=== PATIENT | male | born 1940 | race Caucasian/White ===

== ENCOUNTER 2018-09-10 11:06 | Inpatient (IN) | payer MEDICARE, OTHER ==
--- NOTE | 2018-09-10 11:40 | ER Document Report ---
ED Medical Screen (RME) - General Chief Complaint: Breathing Difficulty Stated Complaint: SHORTNESS OF BREATH Time Seen by Provider: 09/10/18 11:37 Primary Care Provider: PRACHI GALO MD [Primary Care Provider] - Follow up as needed Mode of Arrival: Ambulatory Information source: Patient Notes: 77-year-old male presented to ED for possible right lower lung pneumonia. He was sent to the emergency room by Dr. Isbell. States she has had fevers chills sore throat and cough since . He came to the doctor today because he had difficulty breathing. Dr. Isbell stated that after breathing treatment he had crackles to the right lower lobe with O2 sat of 92%. He states his temperature was 99.9 in the clinic. Patient does have a low blood pressure when seen in the private area he does have crackles to the right lower lobe. O2 sats between 94-95. Temp 98.1 in the pit area. Will send for blood and chest x-ray. I have greeted and performed a rapid initial assessment of this patient. A comprehensive ED assessment and evaluation of the patient, analysis of test results and completion of medical decision making process will be conducted by an additional ED providers. Dictation of this chart was performed using voice recognition software; therefore, there may be some unintended grammatical errors. TRAVEL OUTSIDE OF THE [place] IN LAST 30 DAYS: No - Related Data Allergies/Adverse Reactions: No Known Drug Allergies Allergy (Verified 09/10/18 11:20) pumpkin Allergy (Verified 09/10/18 11:20) Physical Exam - Vital signs Vitals: Temp Pulse Resp BP Pulse Ox 98.1 F 62 22 H 84/54 L 89 L 09/10/18 11:09/10/18 11:09/10/18 11:09/10/18 11:09/10/18 11:26 Course - Vital Signs Vital signs: Temp Pulse Resp BP Pulse Ox 98.1 F 62 22 H 84/54 L 89 L 09/10/18 11:26 09/10/18 11:09/10/18 11:09/10/18 11:09/10/18 11:26 Doctor's Discharge - Discharge Referrals: PRACHI GALO MD [Primary Care Provider] - Follow up as needed
[2018-09-10] MEDS ORDERED: NORMAL SALINE 1000 ML 1,000 ML IV ONE (11:47)
[2018-09-10] MEDS ORDERED: ONDANSETRON HCL INJ/PF 4 MG/2 ML SDV IV ONE (12:00)
[2018-09-10 12:26] LABS: ABSOLUTE MONOCYTES (AUTO) 1.3 10^3/uL (0.1-1.4); ABSOLUTE NEUT (AUTO) 11.9 10^3/uL (1.7-8.2); BASOPHILS % (AUTO) 0.1 % (0-2); HEMATOCRIT 39.4 % (37.9-51.0); HEMOGLOBIN 13.5 g/dL (13.5-17.0); LYMPHOCYTES % (AUTO) 6.9 % (13-45); MEAN CORPUSCULAR HEMOGLOBIN 32.6 pg (27.0-33.4); MEAN CORPUSCULAR HGB CONC 34.2 g/dL (32.0-36.0); MEAN CORPUSCULAR VOLUME 95 fl (80-97); PLATELET COUNT 220 10^3/uL (150-450); RED BLOOD COUNT 4.13 10^6/uL (4.35-5.55); RED CELL DISTRIBUTION WIDTH 12.8 % (11.5-14.0); TOTAL CELLS COUNTED % (AUTO) 100 %; WHITE BLOOD COUNT 14.2 10^3/uL (4.0-10.5)
[2018-09-10 12:30] LABS: VENOUS BLOOD BASE EXCESS 0.9 mmol/L; VENOUS BLOOD HCO3 25.9 mmol/L (20-32); VENOUS BLOOD PCO2 42.9 mmHg (35-63); VENOUS BLOOD PH 7.4 (7.30-7.42)
--- NOTE | 2018-09-10 12:42 | RADIOLOGY REPORT (SQ) ---
EXAM DESCRIPTION: CHEST 2 VIEWS COMPLETED DATE/TIME: 09/10/2018 12:29 pm REASON FOR STUDY: cough crackles right lower lobe COMPARISON: None. EXAM PARAMETERS: NUMBER OF VIEWS: two views TECHNIQUE: Digital Frontal and Lateral radiographic views of the chest acquired. RADIATION DOSE: NA LIMITATIONS: none FINDINGS: LUNGS AND PLEURA: There is opacification in the right lower lung laterally and posteriorly on the lateral view. MEDIASTINUM AND HILAR STRUCTURES: No masses or contour abnormalities. HEART AND VASCULAR STRUCTURES: Heart normal size. No evidence for failure. BONES: No acute findings. HARDWARE: None in the chest. OTHER: No other significant finding. IMPRESSION: Right lower lobe pneumonia. TECHNICAL DOCUMENTATION: JOB ID: [id number] [employer]- All Rights Reserved Reading location - IP/workstation name: [email or web address]
[2018-09-10 12:49] LABS: ALANINE AMINOTRANSFERASE 71 U/L (21-72); ALBUMIN 3.7 g/dL (3.5-5.0); ALKALINE PHOSPHATASE 88 U/L (38-126); ANION GAP 16 (5-19); ASPARTATE AMINO TRANSFERASE 57 U/L (17-59); BILIRUBIN,DIRECT 0.5 mg/dL (0.0-0.4); BILIRUBIN,TOTAL 1.8 mg/dL (0.2-1.3); BLOOD UREA NITROGEN 30 mg/dL (7-20); CALCIUM 9.2 mg/dL (8.4-10.2); CARBON DIOXIDE 23 mmol/L (22-30); CHLORIDE 102 mmol/L (98-107); GLUCOSE 135 mg/dL (75-110); SODIUM 140.6 mmol/L (137-145); TOTAL PROTEIN 6.6 g/dL (6.3-8.2)
[2018-09-10 12:56] LABS: INTERNATIONAL RATION (INR) 1.12
[2018-09-10] MEDS ORDERED: LEVOFLOXACIN 750 MG/D5W RTU 750 MG/150 ML RTUPB IV ONE (13:27)
--- NOTE | 2018-09-10 13:36 | ER Document Report ---
ED General - General Chief Complaint: Breathing Difficulty Stated Complaint: SHORTNESS OF BREATH Time Seen by Provider: 09/10/18 11:37 Primary Care Provider: PRACHI GALO MD [ACTIVE STAFF] - Follow up as needed Mode of Arrival: Ambulatory TRAVEL OUTSIDE OF THE [place] IN LAST 30 DAYS: No - HPI Notes: Patient is a 77-year-old male who presents to the emergency department for evaluation. He was sent in by Dr. Isbell. Since the patient has had sore throat, cough, fevers, body aches. He went to see his doctor today because he was feeling more short of breath. On examination the patient had a right lower lobe crackles, he was concerned for pneumonia. He sent him here to the ED for further evaluation. Patient has had some nausea but no emesis. He still urinating. Normal bowel movements. He denies any significant pain at this ti me. He just feels generally weak. - Related Data Allergies/Adverse Reactions: No Known Drug Allergies Allergy (Verified 09/10/18 11:20) pumpkin Allergy (Verified 09/10/18 11:20) Past Medical History - General Information source: Patient - Social History Smoking Status: Never Smoker Chew tobacco use (# tins/day): No Drug Abuse: None Family History: Reviewed & Not Pertinent, Malignancy - Lung cancer Patient has suicidal ideation: No Patient has homicidal ideation: No - Past Medical History Cardiac Medical History: Reports: Hx Hypercholesterolemia, Hx Hypertension Renal/ Medical History: Denies: Hx Peritoneal Dialysis Review of Systems - Review of Systems Constitutional: See HPI EENT: No symptoms reported Cardiovascular: No symptoms reported Respiratory: See HPI Gastrointestinal: See HPI Genitourinary: No symptoms reported Musculoskeletal: No symptoms reported Skin: No symptoms reported Neurological/Psychological: No symptoms reported Physical Exam - Vital signs Vitals: Temp Pulse Resp BP Pulse Ox 98.1 F 62 22 H 84/54 L 89 L 09/10/18 11:26 09/10/18 11:26 09/10/18 11:26 09/10/18 11:26 09/10/18 11:26 - Notes Notes: Vital signs reviewed, please refer to chart. Head is normocephalic, atraumatic. Pupils equal round, reactive to light. Neck is supple without meningismus. Heart is regular rate and rhythm. Lungs reveal diminished breath sounds with crackles in the right base. Abdomen is soft, nontender, normoactive bowel sounds throughout. Extremities without cyanosis, clubbing. Posterior calves are nontender. Peripheral pulses are equal. Skin is warm and dry. Patient is awake, alert, neurological exam is nonfocal. Course - Re-evaluation Re-evalutation: 09/10/18 13:35 Patient presents to the emergency department for evaluation. On arrival his oxygen is 89%, he is moderately hypotensive. He was placed on a monitor, given IV fluids. Laboratory investigations were obtained. Chest x-ray shows a right lower lobe pneumonia. Patient is given IV Levaquin. This is a 77-year-old male with moderately low blood pressure, elevated lactate. His white count is high. He does qualify for sepsis criteria. His blood pressure was 102/55 after a liter of fluid. His creatinine was found to be 1.92. He states he is unaware of any history of chronic kidney disease, but is unsure his baseline creatinine. There are no old studies available for comparison. At this point I will hold off on further fluids. He is given IV Levaquin. Will call medicine for admiss ion. 09/10/18 13:[address] Marques, he graciously accepted the patient. I have a call to Dr. Jenkins, conversation with him is pending. - Vital Signs Vital signs: Temp Pulse Resp BP Pulse Ox 98.1 F 62 12 85/53 L 94 09/10/18 11:26 09/10/18 11:26 09/10/18 12:01 09/10/18 12:01 09/10/18 12:01 - Laboratory Result Diagrams: 09/10/18 12:00 09/10/18 12:00 Laboratory results interpreted by me: 09/10/18 09/10/18 09/10/18 12:00 12:00 12:00 WBC 14.2 H RBC 4.13 L Seg Neutrophils % 84.0 H Lymphocytes % 6.9 L Absolute Neutrophils 11.9 H BUN 30 H Creatinine 1.92 H Est GFR ( Amer) 42 L Est GFR (Non-Af Amer) 34 L Glucose 135 H Lactic Acid 2.2 H Total Bilirubin 1.8 H Direct Bilirubin 0.5 H - Diagnostic Test Radiology reviewed: Reports reviewed Radiology results interpreted by me: 09/10/18 13:42 Chest X-Ray 09/10/18 11:41 IMPRESSION: Right lower lobe pneumonia. - EKG Interpretation by Me Additional EKG results interpreted by me: 09/10/18 13:53 Sinus mechanism with a rate of 63 bpm. Normal axis. Borderline QT interval. Nonspecific ST changes, but no acute changes concerning for infarction. Inferior T wave changes may be normal variant versus ischemia. No old studies for comparison. Discharge - Discharge Clinical Impression: Pneumonia, Sepsis Condition: Stable Disposition: ADMITTED INPATIENT Admitting Provider: Alice (Hospitalist) Unit Admitted: IMCU Referrals: PRACHI GALO MD [ACTIVE STAFF] - Follow up as needed
[2018-09-10] MEDS ORDERED: PROMETHAZINE HCL 25 MG TABLET PO PRN (14:13)
[2018-09-10] MEDS ORDERED: ACETAMINOPHEN 325 MG TABLET PO PRN (14:13)
--- NOTE | 2018-09-10 14:13 | PDOC H&P ---
History of Present Illness Admission Date/PCP: LEVI FERNANDEZ MD History of Present Illness: ANDREW CARTWRIGHT is a 77 year old male with no significant past medical history except for hypertension presented with chief complaint of shortness of breath and cough. Patient reports this he has been in his usual baseline state of health up until 4 days when he started to have shortness of breath precipitated by exertion and associated cough productive of brownish sputum. Patient denies any fever, chills, chest pain, palpitation or diaphoresis. The above-mentioned complaint patient visited his primary care Dr. Fernandez who directed him to come to ER. In the ER patient found to be hypotensive with blood pressure of 70/40 for which she is bolused with normal saline. His blood work shows leukocytosis of 14,000 and creatinine of 1.92 and lactic acid of 2.2. His chest x-ray shows right lower lobe consolidation which is compatible with right lower lobe pneumonia. Past Medical History Cardiac Medical History: Reports: Hyperlipidema, Hypertension Social History Smoking Status: Never Smoker - Advance Directive Resuscitation Status: Full Code Family History Family History: Reviewed & Not Pertinent, Malignancy - Lung cancer Parental Family History Reviewed: Yes Children Family History Reviewed: Yes Sibling(s) Family History Reviewed.: Yes Medication/Allergy Allergies/Adverse Reactions: No Known Drug Allergies Allergy (Verified 09/10/18 11:20) pumpkin Allergy (Verified 09/10/18 11:20) Review of Systems Constitutional: ABSENT: chills, fever(s), headache(s), weight gain, weight loss Eyes: ABSENT: visual disturbances Ears: ABSENT: hearing changes Cardiovascular: ABSENT: chest pain, dyspnea on exertion, edema, orthropnea, palpitations Respiratory: PRESENT: cough, dyspnea Gastrointestinal: ABSENT: abdominal pain, constipation, diarrhea, hematemesis, hematochezia, nausea, vomiting Genitourinary: ABSENT: dysuria, hematuria Musculoskeletal: ABSENT: joint swelling Integumentary: ABSENT: rash, wounds Neurological: ABSENT: abnormal gait, abnormal speech, confusion, dizziness, focal weakness, syncope Psychiatric: ABSENT: anxiety, depression, homidical ideation, suicidal ideation Endocrine: ABSENT: cold intolerance, heat intolerance, polydipsia, polyuria Hematologic/Lymphatic: ABSENT: easy bleeding, easy bruising Physical Exam Vital Signs: Temp Pulse Resp BP Pulse Ox 98.1 F 62 12 85/53 L 94 09/10/18 11:26 09/10/18 11:26 09/10/18 12:01 09/10/18 12:01 09/10/18 12:01 Intake & Output 09/09/18 09/10/18 09/11/18 06:59 06:59 06:59 Intake Total 1000 Balance 1000 Weight 87.6 kg Results Laboratory Results: 09/10/18 12:00 09/10/18 12:00 09/10/18 09/10/18 09/10/18 12:00 12:00 12:00 WBC 14.2 H RBC 4.13 L Hgb 13.5 Hct 39.4 MCV 95 MCH 32.6 MCHC 34.2 RDW 12.8 Plt Count 220 Seg Neutrophils % 84.0 H Lymphocytes % 6.9 L Monocytes % 9.0 Eosinophils % 0.0 Basophils % 0.1 Absolute Neutrophils 11.9 H Absolute Lymphocytes 1.0 Absolute Monocytes 1.3 Absolute Eosinophils 0.0 Absolute Basophils 0.0 VBG pH VBG pCO2 VBG HCO3 VBG Base Excess Sodium 140.6 Potassium 4.0 Chloride 102 Carbon Dioxide 23 Anion Gap 16 BUN 30 H Creatinine 1.92 H Est GFR ( Amer) 42 L Est GFR (Non-Af Amer) 34 L Glucose 135 H Lactic Acid 2.2 H Calcium 9.2 Total Bilirubin 1.8 H AST 57 ALT 71 Alkaline Phosphatase 88 Total Protein 6.6 Albumin 3.7 09/10/18 12:00 WBC RBC Hgb Hct MCV MCH MCHC RDW Plt Count Seg Neutrophils % Lymphocytes % Monocytes % Eosinophils % Basophils % Absolute Neutrophils Absolute Lymphocytes Absolute Monocytes Absolute Eosinophils Absolute Basophils VBG pH 7.40 VBG pCO2 42.9 VBG HCO3 25.9 VBG Base Excess 0.9 Sodium Potassium Chloride Carbon Dioxide Anion Gap BUN Creatinine Est GFR ( Amer) Est GFR (Non-Af Amer) Glucose Lactic Acid Calcium Total Bilirubin AST ALT Alkaline Phosphatase Total Protein Albumin Impressions: Chest X-Ray 09/10/18 11:41 IMPRESSION: Right lower lobe pneumonia. Assessment and Plan - Diagnosis (1) Sepsis Is this a current diagnosis for this admission?: Yes Plan: Evidenced by leukocytosis, lactic acidosis, hypotension and acute kidney injury. Most probably the origin of his sepsis is his right lower lobe. Patient is going to be cautiously hydrated and managed accordingly. (2) Right lower lobe pneumonia Is this a current diagnosis for this admission?: Yes Plan: This is a community-acquired pneumonia. Patient has been started on Levaquin. (3) Acute kidney injury Is this a current diagnosis for this admission?: Yes Plan: To sepsis and possibly prerenal. Patient is going to be gently hydrated. (4) Hypertension Qualifiers: Hypertension type: essential hypertension Qualified Code(s): I10 - Essential (primary) hypertension Is this a current diagnosis for this admission?: Yes Plan: To home medication (5) Hyperlipidemia associated with type 2 diabetes mellitus Is this a current diagnosis for this admission?: Yes Plan: Continue home medication. - Inpatient Certification Medical Necessity: Need Close Monitoring Due to Risk of Patient Decompensation, Need For IV Fluids, Need for IV Antibiotics
[2018-09-10] MEDS ORDERED: GUAIFENESIN 600 MG TABLET.SA PO ONE (14:19)
[2018-09-10] MEDS: ENOXAPARIN SODIUM INJ 40 MG/0.4 ML DISP.SYRIN SUBCUT SCH (17:24)
[2018-09-10] MEDS: DOCUSATE SODIUM 100 MG CAPSULE PO SCH (17:47)
[2018-09-10] MEDS: NORMAL SALINE 1000 ML 1,000 ML IV PRN (18:29)
--- NOTE | 2018-09-10 18:37 | EKG REPORT ---
SEVERITY:- ABNORMAL ECG - SINUS RHYTHM ABNORMAL T, CONSIDER ISCHEMIA, INFERIOR LEADS BORDERLINE PROLONGED QT INTERVAL : Confirmed by: Jacquelyn Mars MD 10-Sep-2018 18:36:24
[2018-09-10] MEDS: GUAIFENESIN 600 MG TABLET.SA PO SCH (21:37)
[2018-09-10] MEDS: FAMOTIDINE 20 MG TABLET PO SCH (21:37)
[2018-09-11] MEDS: NORMAL SALINE 1000 ML 1,000 ML IV PRN ×2 (03:15→11:50)
[2018-09-11 04:00] LABS: APPEARANCE,URINE SLIGHTLY-CLOUDY; BILIRUBIN,URINE NEGATIVE (NEGATIVE); COLOR,URINE YELLOW; GLUCOSE, URINE NEGATIVE (NEGATIVE); KETONES,URINE NEGATIVE (NEGATIVE); LEUKOCYTE ESTERASE,URINE NEGATIVE (NEGATIVE); NITRITE,URINE NEGATIVE (NEGATIVE); PROTEIN,URINE NEGATIVE (NEGATIVE); URINE SPECIFIC GRAVITY 1.015
[2018-09-11 05:52] LABS: ABSOLUTE EOSINOPHILS # (AUTO) 0.1 10^3/uL (0.0-0.6); ABSOLUTE LYMPHOCYTES (AUTO) 1.8 10^3/uL (0.5-4.7); ABSOLUTE MONOCYTES (AUTO) 1.2 10^3/uL (0.1-1.4); ABSOLUTE NEUT (AUTO) 7.7 10^3/uL (1.7-8.2); BASOPHILS % (AUTO) 0.3 % (0-2); EOSINOPHILS % (AUTO) 0.8 % (0-6); HEMATOCRIT 36.2 % (37.9-51.0); HEMOGLOBIN 12.6 g/dL (13.5-17.0); MEAN CORPUSCULAR HEMOGLOBIN 33.1 pg (27.0-33.4); MEAN CORPUSCULAR HGB CONC 34.9 g/dL (32.0-36.0); MEAN CORPUSCULAR VOLUME 95 fl (80-97); MONOCYTES % (AUTO) 11.4 % (3-13); PLATELET COUNT 200 10^3/uL (150-450); RED BLOOD COUNT 3.82 10^6/uL (4.35-5.55); SEGMENTED NEUTROPHILS % (AUTO) 70.5 % (42-78); TOTAL CELLS COUNTED % (AUTO) 100 %; WHITE BLOOD COUNT 10.9 10^3/uL (4.0-10.5)
[2018-09-11 06:15] LABS: ANION GAP 13 (5-19); BLOOD UREA NITROGEN 29 mg/dL (7-20); CALCIUM 8.6 mg/dL (8.4-10.2); CARBON DIOXIDE 22 mmol/L (22-30); CHLORIDE 107 mmol/L (98-107); GLUCOSE 121 mg/dL (75-110); LIPASE 67.9 U/L (23-300); POTASSIUM 3.9 mmol/L (3.6-5.0); SODIUM 142.2 mmol/L (137-145)
[2018-09-11] MEDS: ENOXAPARIN SODIUM INJ 40 MG/0.4 ML DISP.SYRIN SUBCUT SCH (10:09)
[2018-09-11] MEDS: GUAIFENESIN 600 MG TABLET.SA PO SCH (10:09)
[2018-09-11] MEDS: DOCUSATE SODIUM 100 MG CAPSULE PO SCH ×2 (10:09→17:55)
--- NOTE | 2018-09-11 16:35 | PDOC PROGRESS REPORT ---
Subjective Progress Note for:: 09/11/18 Subjective:: No adverse events overnight. No new complaints. No fevers. Cough is been productive. He is feeling a lot better. He is been getting up to the bathroom without getting short of breath. Reason For Visit: SEPSIS, PNEUMONIA, ACUTE KIDNEY INJURY Physical Exam Vital Signs: Temp Pulse Resp BP Pulse Ox 98.2 F 53 L 18 138/65 H 99 09/11/18 11:49 09/11/18 11:49 09/11/18 11:49 09/11/18 11:49 09/11/18 11:49 Intake & Output 09/10/18 09/11/18 09/12/18 06:59 06:59 06:59 Intake Total 2990 1000 Output Total 375 Balance 2615 1000 Weight 89.5 kg General appearance: PRESENT: no acute distress, cooperative Respiratory exam: PRESENT: crackles - Right lower lobe, symmetrical, unlabored. ABSENT: accessory muscle use, chest wall tenderness, prolonged expiratory phas, rhonchi, tachypnea, wheezes Cardiovascular exam: PRESENT: RRR, +S1, +S2 Pulses: PRESENT: normal carotid pulses Vascular exam: PRESENT: normal capillary refill GI/Abdominal exam: PRESENT: normal bowel sounds, soft. ABSENT: distended, guarding, rebound, tenderness Extremities exam: ABSENT: clubbing, pedal edema Musculoskeletal exam: PRESENT: normal inspection. ABSENT: deformity Neurological exam: PRESENT: alert, awake, oriented to person, oriented to place, oriented to time, oriented to situation Psychiatric exam: PRESENT: appropriate affect, normal mood Skin exam: PRESENT: dry, warm Results Laboratory Results: 09/11/18 04:55 09/11/18 04:55 09/10/18 09/11/18 09/11/18 16:28 03:25 04:55 WBC 10.9 H RBC 3.82 L Hgb 12.6 L Hct 36.2 L MCV 95 MCH 33.1 MCHC 34.9 RDW 13.0 Plt Count 200 Seg Neutrophils % 70.5 Lymphocytes % 17.0 Monocytes % 11.4 Eosinophils % 0.8 Basophils % 0.3 Absolute Neutrophils 7.7 Absolute Lymphocytes 1.8 Absolute Monocytes 1.2 Absolute Eosinophils 0.1 Absolute Basophils 0.0 Sodium Potassium Chloride Carbon Dioxide Anion Gap BUN Creatinine Est GFR ( Amer) Est GFR (Non-Af Amer) Glucose Lactic Acid 1.6 Calcium Lipase Urine Color YELLOW Urine Appearance SLIGHTLY-CLOUDY Urine pH 5.0 Ur Specific [place] 1.015 Urine Protein NEGATIVE Urine Glucose (UA) NEGATIVE Urine Ketones NEGATIVE Urine Blood NEGATIVE Urine Nitrite NEGATIVE Ur Leukocyte Esterase NEGATIVE Urine WBC (Auto) 3 Urine RBC (Auto) 2 09/11/18 04:55 WBC RBC Hgb Hct MCV MCH MCHC RDW Plt Count Seg Neutrophils % Lymphocytes % Monocytes % Eosinophils % Basophils % Absolute Neutrophils Absolute Lymphocytes Absolute Monocytes Absolute Eosinophils Absolute Basophils Sodium 142.2 Potassium 3.9 Chloride 107 Carbon Dioxide 22 Anion Gap 13 BUN 29 H Creatinine 1.65 H Est GFR ( Amer) 49 L Est GFR (Non-Af Amer) 41 L Glucose 121 H Lactic Acid Calcium 8.6 Lipase 67.9 Urine Color Urine Appearance Urine pH Ur Specific [place] Urine Protein Urine Glucose (UA) Urine Ketones Urine Blood Urine Nitrite Ur Leukocyte Esterase Urine WBC (Auto) Urine RBC (Auto) Impressions: Chest X-Ray 09/10/18 11:41 IMPRESSION: Right lower lobe pneumonia. Assessment and Plan - Diagnosis (1) Right lower lobe pneumonia Qualifiers: Pneumonia type: due to unspecified organism Qualified Code(s): J18.1 - Lobar pneumonia, unspecified organism Is this a current diagnosis for this admission?: Yes Plan: White blood cell count is improving on current antibiotics. Blood cultures as far negative. (2) Acute kidney injury Is this a current diagnosis for this admission?: Yes Plan: Creatinine is improving on IV fluids and antibiotics. We will repeat his labs in the morning to see if he needs more IV fluids. - Time Time Spent with patient: 15-24 minutes
[2018-09-11] MEDS: VALSARTAN 160 MG TABLET PO SCH (17:54)
[2018-09-11] MEDS: LOSARTAN POTASSIUM 50 MG TABLET PO SCH (17:55)
[2018-09-11] MEDS: CLONIDINE HCL 0.1 MG TABLET PO SCH (17:55)
[2018-09-11] MEDS ORDERED: ATORVASTATIN CALCIUM 20 MG TABLET PO SCH (18:00)
[2018-09-12] MEDS: GUAIFENESIN 600 MG TABLET.SA PO SCH ×2 (00:08→09:30)
[2018-09-12] MEDS: FAMOTIDINE 20 MG TABLET PO SCH (00:09)
[2018-09-12 05:53] LABS: ABSOLUTE BASOPHILS # (AUTO) 0.1 10^3/uL (0.0-0.2); ABSOLUTE EOSINOPHILS # (AUTO) 0.3 10^3/uL (0.0-0.6); ABSOLUTE LYMPHOCYTES (AUTO) 2.1 10^3/uL (0.5-4.7); ABSOLUTE MONOCYTES (AUTO) 1.1 10^3/uL (0.1-1.4); ABSOLUTE NEUT (AUTO) 4.9 10^3/uL (1.7-8.2); BASOPHILS % (AUTO) 0.6 % (0-2); EOSINOPHILS % (AUTO) 3.3 % (0-6); HEMOGLOBIN 12.1 g/dL (13.5-17.0); LYMPHOCYTES % (AUTO) 24.4 % (13-45); MEAN CORPUSCULAR HGB CONC 34.5 g/dL (32.0-36.0); MEAN CORPUSCULAR VOLUME 96 fl (80-97); MONOCYTES % (AUTO) 13.5 % (3-13); PLATELET COUNT 203 10^3/uL (150-450); RED BLOOD COUNT 3.66 10^6/uL (4.35-5.55); RED CELL DISTRIBUTION WIDTH 12.8 % (11.5-14.0); SEGMENTED NEUTROPHILS % (AUTO) 58.2 % (42-78); TOTAL CELLS COUNTED % (AUTO) 100 %; WHITE BLOOD COUNT 8.5 10^3/uL (4.0-10.5)
[2018-09-12 06:22] LABS: ANION GAP 8 (5-19); BLOOD UREA NITROGEN 19 mg/dL (7-20); CALCIUM 8.9 mg/dL (8.4-10.2); CARBON DIOXIDE 24 mmol/L (22-30); CHLORIDE 110 mmol/L (98-107); GLUCOSE 96 mg/dL (75-110); POTASSIUM 3.9 mmol/L (3.6-5.0)
[2018-09-12] MEDS: CLONIDINE HCL 0.1 MG TABLET PO SCH (06:53)
[2018-09-12] MEDS: LOSARTAN POTASSIUM 50 MG TABLET PO SCH (09:30)
[2018-09-12] MEDS: VALSARTAN 160 MG TABLET PO SCH (09:30)
[2018-09-12] MEDS: ENOXAPARIN SODIUM INJ 40 MG/0.4 ML DISP.SYRIN SUBCUT SCH (09:30)
[2018-09-12] MEDS: DOCUSATE SODIUM 100 MG CAPSULE PO SCH (09:30)
[2018-09-12] MEDS ORDERED: LEVOFLOXACIN 750 MG TABLET PO SCH (10:00)
[2018-09-12] MEDS ORDERED: LEVOFLOXACIN 750 MG/D5W RTU 750 MG/150 ML RTUPB IV SCH (10:00)
[2018-09-12 11:00] VITALS: BP 116/61
--- NOTE | 2018-09-12 18:28 | PDOC DISCHARGE SUMMARY ---
General - Admit/Disc Date/PCP Admission Date/Primary Care Provider: 09/10/18 14:20 LEVI FERNANDEZ MD Discharge Date: 09/12/18 - Discharge Diagnosis (1) Right lower lobe pneumonia Is this a current diagnosis for this admission?: Yes Summary: Responded well to antibiotics. Blood cultures negative. Finish a course of Levaquin at home. (2) Acute kidney injury Is this a current diagnosis for this admission?: Yes Summary: Resolved with treatment of his infection with IV fluids (3) Hyperlipidemia associated with type 2 diabetes mellitus Is this a current diagnosis for this admission?: Yes (4) Hypertension Is this a current diagnosis for this admission?: Yes (5) Sepsis Is this a current diagnosis for this admission?: Yes Summary: Due to his pneumonia and evidence by his acute kidney injury and a lactate of 2.2 - Additional Information Resuscitation Status: Full Code Discharge Diet: Cardiac Discharge Activity: Activity As Tolerated Prescriptions: Levofloxacin [Levaquin 750 mg Tablet] 750 mg PO DAILY #5 tablet Home Medications: Aspirin [Ecotrin 81 mg EC Tablet] 81 mg PO DAILY 09/10/18 Atorvastatin Calcium [Lipitor 20 mg Tablet] 20 mg PO DAILY 09/10/18 Clonidine HCl [Catapres 0.1 mg Tablet] 0.1 mg PO Q12 09/10/18 Multivitamin [One-A-Day Essential] 1 each PO DAILY 09/10/18 Valsartan [Diovan] 320 mg PO DAILY 09/10/18 Levofloxacin [Levaquin 750 mg Tablet] 750 mg PO DAILY #5 tablet 09/12/18 History of Present Illness History of Present Illness: ANDREW CARTWRIGHT is a 77 year old male with no significant past medical history except for hypertension presented with chief complaint of shortness of breath and cough. Patient reports this he has been in his usual baseline state of health up until 4 days when he started to have shortness of breath precipitated by exertion and associated cough productive of brownish sputum. Patient denies any fever, chills, chest pain, palpitation or diaphoresis. The above-mentioned complaint patient visited his primary care Dr. Fernandez who directed him to come to ER. In the ER patient found to be hypotensive with blood pressure of 70/40 for which she is bolused with normal saline. His blood work shows leukocytosis of 14,000 and creatinine of 1.92 and lactic acid of 2.2. His chest x-ray shows right lower lobe consolidation which is compatible with right lower lobe pneumonia. Hospital Course Hospital Course: He improved quickly with IV antibiotics and IV fluids. His creatinine returned to normal. He remained afebrile. His white blood cell count returned to normal. He will finish up a course of Levaquin at home. His labs and examination were reassuring and he was discharged in good condition. Physical Exam Vital Signs: Temp Pulse Resp BP Pulse Ox 97.2 F 54 L 17 116/61 97 09/12/18 10:57 09/12/18 10:57 09/12/18 10:57 09/12/18 10:57 09/12/18 10:57 Intake & Output 09/11/18 09/12/18 09/13/18 06:59 06:59 06:59 Intake Total 2990 1840 Output Total 375 Balance 2615 1840 Weight 89.5 kg 89.2 kg General appearance: PRESENT: no acute distress, cooperative Respiratory exam: PRESENT: crackles - Right lower lobe, symmetrical, unlabored. ABSENT: accessory muscle use, chest wall tenderness, prolonged expiratory phas, rhonchi, tachypnea, wheezes Cardiovascular exam: PRESENT: RRR, +S1, +S2 Pulses: PRESENT: normal carotid pulses Vascular exam: PRESENT: normal capillary refill GI/Abdominal exam: PRESENT: normal bowel sounds, soft. ABSENT: distended, guarding, rebound, tenderness Extremities exam: ABSENT: clubbing, pedal edema Musculoskeletal exam: PRESENT: normal inspection. ABSENT: deformity Neurological exam: PRESENT: alert, awake, oriented to person, oriented to place, oriented to time, oriented to situation Psychiatric exam: PRESENT: appropriate affect, normal mood Skin exam: PRESENT: dry, warm Results Laboratory Results: 09/12/18 04:27 09/12/18 04:27 09/12/18 09/12/18 04:27 04:27 WBC 8.5 RBC 3.66 L Hgb 12.1 L Hct 35.0 L MCV 96 MCH 33.0 MCHC 34.5 RDW 12.8 Plt Count 203 Seg Neutrophils % 58.2 Lymphocytes % 24.4 Monocytes % 13.5 H Eosinophils % 3.3 Basophils % 0.6 Absolute Neutrophils 4.9 Absolute Lymphocytes 2.1 Absolute Monocytes 1.1 Absolute Eosinophils 0.3 Absolute Basophils 0.1 Sodium 142.0 Potassium 3.9 Chloride 110 H Carbon Dioxide 24 Anion Gap 8 BUN 19 Creatinine 1.17 Est GFR ( Amer) > 60 Est GFR (Non-Af Amer) > 60 Glucose 96 Calcium 8.9 Impressions: Chest X-Ray 09/10/18 11:41 IMPRESSION: Right lower lobe pneumonia. Qualifiers - * PATIENT BEING DISCHARGED WITH ANY OF THE FOLLOWING DIAGNOSIS: No Acute Heart Failure Is this a Heart Failure Patient?: No Plan Time Spent: Greater than 30 Minutes
== END 2018-09-12 11:31 | disposition home or self-care (01) | DRG 871 ==
LOC: ER 11:06 → EH 14:20 → 3W 16:19 → 5 09-11 21:45
PROVIDERS: ADMIT Internal Medicine; ATTEND Internal Medicine
DX: A41.9 Sepsis, unspecified organism (principal); J18.1 Lobar pneumonia, unspecified organism; N17.9 Acute kidney failure, unspecified; E78.00 Pure hypercholesterolemia, unspecified; I10 Essential (primary) hypertension; E11.8 Type 2 diabetes mellitus with unspecified complications
CPT/HCPCS: 36415; 71046; 80048; 80053; 81001; 82803; 83036; 83605; 83690; 85025; 85610; 87040; 87086; 93005; 93010; 96361; 96365; 96375; 99285; J1650; J1956; J2405; J7030

== ENCOUNTER → 2018-10-25 | Outpatient (CLI) | payer MEDICARE, OTHER ==
--- NOTE | 2018-10-25 12:13 | RADIOLOGY REPORT (SQ) ---
EXAM DESCRIPTION: CHEST 2 VIEWS COMPLETED DATE/TIME: 10/25/2018 10:22 am REASON FOR STUDY: PNEUMONIA, UNSPECIFIED ORGANISM COMPARISON: 09/10/2018 EXAM PARAMETERS: NUMBER OF VIEWS: two views TECHNIQUE: Digital Frontal and Lateral radiographic views of the chest acquired. RADIATION DOSE: NA LIMITATIONS: none FINDINGS: LUNGS AND PLEURA: Scarring in the left base. The right lung is clear. No effusions. MEDIASTINUM AND HILAR STRUCTURES: No masses or contour abnormalities. HEART AND VASCULAR STRUCTURES: Heart normal size. No evidence for failure. BONES: No acute findings. HARDWARE: None in the chest. OTHER: No other significant finding. IMPRESSION: Resolved right lower lobe pneumonia. TECHNICAL DOCUMENTATION: JOB ID: [id number] [employer]- All Rights Reserved Reading location - IP/workstation name: [email or web address]
== END ==
LOC: RAD 10:03
PROVIDERS: ATTEND Internal Medicine
DX: J18.9 Pneumonia, unspecified organism (principal)
CPT/HCPCS: 71046